=== PATIENT | female | born 1945 | race Caucasian/White ===

== ENCOUNTER 2021-09-22 10:43 | Observation (INO) | payer MEDICARE ==
--- NOTE | 2021-09-22 11:20 | ERPHSYRPT ---
- History of Present Illness Time Seen by Provider: 09/22/21 11:05 Source: patient Exam Limitations: no limitations Physician History: Patient is a 75-year-old female with a history of diabetes and high blood pressure presents to our ED for evaluation of a fall and left upper and lower extremity weakness. Patient states she was at home. At approximately 9:30 AM patient was in the bathroom. Patient began to feel dizzy. Patient ambulated to her living room where she felt "weird". Patient went to sit down on her couch but states she slid off the couch. Patient could not get up on her own. No BHT or LOC. No neck pain. Cervical spine cleared clinically. Symptoms are constant. Patient primarily complains of left upper extremity weakness. No obvious sensory deficits per patient. Patient denies history of stroke. Patient's glucose this morning was 118. Patient otherwise has no complaints. Family friend at bedside. Timing/Duration: today Severity: moderate Character of Deficits: other (Left upper extremity weakness, left leg weakness) Deficits: falling Baseline/Normal Cognition: alert oriented x 3 Current Cognition: alert oriented x 3 Baseline Gait: walks w/o assistance Associated Symptoms: weakness, No fever, No chills, No loss of consciousness, No muscle spasms, No numbness/tingling in legs/feet, No ringing in ears, No seizures, No slurred speech, No chest pain, No headache Allergies/Adverse Reactions: metronidazole [From Flagyl] Allergy (Verified 09/22/21 12:01) Penicillins Allergy (Verified 09/22/21 13:10) Sulfa (Sulfonamide Antibiotics) Allergy (Verified 09/22/21 13:10) aspirin Adverse Reaction (Mild, Verified 09/22/21 13:08) adhesive Adverse Reaction (Verified 09/22/21 13:10) Iodinated Contrast Media Adverse Reaction (Verified 09/22/21 13:10) Home Medications: Amlodipine Besylate 5 mg [Norvasc 5 mg] 5 mg PO DAILY 09/22/21 [History] Budesonide/Glycopyr/Formoterol [Breztri Aerosphere Inhaler] 10.7 gm IH DAILY PRN PRN 09/22/21 [History] Duloxetine HCl 30 mg [Cymbalta 30 MG Capsule] 30 mg PO DAILY 09/22/21 [History] Esomeprazole Magnesium [Nexium] 40 mg PO DAILY 09/22/21 [History] Glipizide 5 mg [Glucotrol 5 MG] 2.5 mg PO DAILY 09/22/21 [History] Glipizide Xl 5 mg [Glucotrol Xl 5 MG] 5 mg PO DAILY 09/22/21 [History] Levothyroxine Sodium 150 Mcg [Synthroid 150 Mcg] 150 mcg PO DAILY 09/22/21 [History] Lisinopril/Hydrochlorothiazide [Lisinopril-Hctz 20-12.5 mg Tab] 1 each PO DAILY 09/22/21 [History] Metoprolol Tartrate 50 mg [Lopressor 50 MG] 50 mg PO DAILY 09/22/21 [History] Sitagliptin Phosphate 50 MG [Januvia 50 MG] 100 mg PO DAILY 09/22/21 [History] Tramadol HCl 50 mg [Ultram 50 mg] 50 mg PO DAILY 09/22/21 [History] Trazodone HCl 50 mg [Desyrel 50 mg] 50 mg PO DAILY 09/22/21 [History] - Review of Systems Constitutional: No Symptoms, No Fever, No Chills Eyes: No Symptoms Ears, Nose, & Throat: No Symptoms Respiratory: No Symptoms, No Cough, No Dyspnea Cardiac: No Symptoms, No Chest Pain, No Edema, No Syncope Abdominal/Gastrointestinal: No Symptoms, No Abdominal Pain, No Nausea, No Vomiting, No Diarrhea Genitourinary Symptoms: No Symptoms, No Dysuria Musculoskeletal: No Symptoms, No Back Pain, No Neck Pain Skin: No Symptoms, No Rash Neurological: No Symptoms, No Dizziness, No Focal Weakness, No Sensory Changes Psychological: No Symptoms Endocrine: No Symptoms Hematologic/Lymphatic: No Symptoms Immunological/Allergic: No Symptoms All Other Systems: Reviewed and Negative - Past Medical History Neurological History: No Pertinent History Cardiac History: No Pertinent History Respiratory History: No Pertinent History Endocrine Medical History: Diabetes Type II, Other Musculoskeletal History: Osteoarthritis Other Medical History: kidney CA, thyroid removal, - Nursing Vital Signs Nursing Vital Signs: Initial Vital Signs Temperature 98.2 F 09/22/21 11:08 Pulse Rate 55 L 09/22/21 11:08 Respiratory Rate 18 09/22/21 11:08 Blood Pressure 128/55 09/22/21 11:08 O2 Sat by Pulse Oximetry 95 09/22/21 11:08 Pain Scale Pain Intensity 4 - Jignesh Coma Scale Best Eye Response (Jignesh): (4) open spontaneously Best Verbal Response (Ashdown): (5) oriented Best Motor Response (Ashdown): (6) obeys commands Ashdown Total: 15 - Physical Exam General Appearance: no apparent distress, alert Eye Exam: bilateral eye: normal inspection, PERRL, EOMI Ears, Nose, Throat Exam: normal ENT inspection, TMs normal, pharynx normal, moist mucous membranes, other Neck Exam: normal inspection, non-tender, supple, full range of motion Respiratory: normal breath sounds, chest tenderness, lungs clear, airway intact, No respiratory distress Cardiovascular: regular rate/rhythm, No edema Gastrointestinal: soft, normal bowel sounds, No tenderness, No distention, No guarding, No rebound, No organomegaly, No splenomegaly Back Exam: normal inspection Extremity Exam: normal inspection, other (Left upper extremity weakness. Patient unable to hold left upper extremity antigravity for more than a second.), No pedal edema Peripheral Pulses: dorsalis-pedis (R): 2+, dorsalis-pedis (L): 2+ Mental Status: alert, oriented x 3 field research assistant Exam: normal hearing, normal speech (Cranial nerves appear to be intact.), PERRL, tongue midline, No abnormal eye position Coordination/Gait: normal finger to nose, normal gait Motor/Sensory: No sensory deficit Skin Exam: normal color, warm, dry, No rash SpO2 Interpretation: normal SpO2: 98 O2 Delivery: Room Air - Course Nursing assessment & vital signs reviewed: Yes EKG Interpreted by Me: RATE (53), Sinus Rhythm, NORMAL AXIS, NORMAL INTERVALS - CT Exams Head CT Interpretation: Tele-radiologist Report (Nonacute senile brain. 1.1 cm calcified meningioma at the right vertex. Pansinusitis) Ordered Tests: Active Orders 24 hr Category Date Time Status Shrimp Header STAT Care 09/22/21 11:14 Active EKG-ER Only STAT Care 09/22/21 11:13 Active IV Insertion STAT Care 09/22/21 11:13 Active Pulse Oximetry (ED) STAT Care 09/22/21 11:13 Active HEAD WITHOUT CONTRAST [CT] Stat Exams 09/22/21 11:11 Completed MRA BRAIN WITHOUT CONTRAST [MRI] Stat Exams 09/22/21 13:38 Ordered CBC W DIFF Stat Lab 09/22/21 11:30 Completed ETHYL ALCOHOL Stat Lab 09/22/21 11:30 Completed MAGNESIUM Stat Lab 09/22/21 11:30 Completed NT PRO BNP Stat Lab 09/22/21 11:30 Completed TROPONIN Q3H Lab 09/22/21 14:15 Ordered TROPONIN Q3H Lab 09/22/21 17:15 Ordered TROPONIN Q3H Lab 09/22/21 20:15 Ordered TROPONIN Q3H Lab 09/22/21 23:15 Ordered UA W/RFX CULTURE Stat Lab 09/22/21 12:55 Results Urine Triage Profile Stat Lab 09/22/21 11:43 Ordered Transfer Order Routine Transfer 09/22/21 Ordered Medication Summary Generic Name Dose Route Start Last Admin Trade Name Freq PRN Reason Stop Dose Admin Sodium Chloride 1,000 mls @ 75 mls/hr 09/22/21 12:45 09/22/21 13:09 Sodium Chloride 0.9% 1000 Ml IV 10/22/21 12:44 75 mls/hr .[id number] HIRAL Administration Discontinued Medications Generic Name Dose Route Start Last Admin Trade Name Freq PRN Reason Stop Dose Admin Acetaminophen 975 mg 09/22/21 13:15 09/22/21 13:18 Acetaminophen 325 Mg Tablet PO 09/22/21 13:16 975 mg STAT STA Administration Acetaminophen Confirm 09/22/21 13:16 Acetaminophen 325 Mg Tablet Administered 09/22/21 13:17 Dose 975 mg .ROUTE .STK-MED ONE Aspirin 324 mg 09/22/21 12:36 09/22/21 13:14 Aspirin 81 Mg Tab.Chew PO 09/22/21 12:37 Not Given STAT ONE Lab/Rad Data: Laboratory Result Diagrams 09/22/21 11:30 09/22/21 11:30 Laboratory Results 09/22/21 09/22/21 09/22/21 Range/Units 12:55 11:30 11:30 WBC (4.0-10.5) K/mm3 RBC (4.1-5.4) M/mm3 Hgb (12.0-16.0) gm/dl Hct (35-47) % MCV (78-100) fl MCH (26-32) pg MCHC (32-36) g/dl RDW (11.5-14.0) % Plt Count (150-450) K/mm3 MPV (7.5-11.0) fl Gran % (36.0-66.0) % Eos # (Auto) (0-0.5) Absolute Lymphs (auto) (1.0-4.6) Absolute Monos (auto) (0.0-1.3) Lymphocytes % (24.0-44.0) % Monocytes % (0.0-12.0) % Eosinophils % (0.00-5.0) % Basophils % (0.0-0.4) % Absolute Granulocytes (1.4-6.9) Basophils # (0-0.4) Sodium Direct 141 (138-146) mmol/L Potassium 4.7 (3.5-4.9) mmol/L Chloride 106 (98-109) mmol/L Carbon Dioxide 25 (24-29) mmol/L Venous BUN 33 H (8-26) mg/dL Creatinine 1.6 H (0.6-1.3) mg/dL Glucose 132 H (70-105) mg/dL Ionized Calcium 1.39 H (1.12-1.32) mmol/L Magnesium (1.6-2.3) mg/dL Troponin 0.00 (0.00-0.03) ng/mL NT-Pro-B Natriuret Pep (0-900) pg/mL Urinalys Dipstick Clnc MAIN LAB Urine Color YELLOW (YELLOW) Urine Appearance CLEAR (CLEAR) Urine pH 6.0 (5-6) Ur Specific [place] 1.015 (1.005-1.025) POC Urine Protein Conf NEGATIVE (Negative) Urine Ketones NEGATIVE (NEGATIVE) Urine Nitrite NEGATIVE (NEGATIVE) Urine Bilirubin NEGATIVE (NEGATIVE) Urine Urobilinogen 0.2 (0-1) mg/dL Urine Leukocytes MODERATE (NEGATIVE) Urine WBC (Auto) Pending Urine RBC (Auto) Pending U Epithel Cells (Auto) Pending Urine Bacteria (Auto) Pending Urine RBC NEGATIVE (0-5) Arian/ul Ur Culture Indicated? Pending Urine Glucose NEGATIVE (NEGATIVE) mg/dL Ethyl Alcohol (0-10) mg/dL 09/22/21 09/22/21 Range/Units 11:30 11:30 WBC 9.8 (4.0-10.5) K/mm3 RBC 4.16 (4.1-5.4) M/mm3 Hgb 12.7 (12.0-16.0) gm/dl Hct 38.7 (35-47) % MCV 93.0 (78-100) fl MCH 30.5 (26-32) pg MCHC 32.8 (32-36) g/dl RDW 12.8 (11.5-14.0) % Plt Count 318 (150-450) K/mm3 MPV 9.3 (7.5-11.0) fl Gran % 60.6 (36.0-66.0) % Eos # (Auto) 0.38 (0-0.5) Absolute Lymphs (auto) 2.76 (1.0-4.6) Absolute Monos (auto) 0.68 (0.0-1.3) Lymphocytes % 28.1 (24.0-44.0) % Monocytes % 6.9 (0.0-12.0) % Eosinophils % 3.9 (0.00-5.0) % Basophils % 0.5 (0.0-0.4) % Absolute Granulocytes 5.94 (1.4-6.9) Basophils # 0.05 (0-0.4) Sodium Direct (138-146) mmol/L Potassium (3.5-4.9) mmol/L Chloride (98-109) mmol/L Carbon Dioxide (24-29) mmol/L Venous BUN (8-26) mg/dL Creatinine (0.6-1.3) mg/dL Glucose (70-105) mg/dL Ionized Calcium (1.12-1.32) mmol/L Magnesium 1.9 (1.6-2.3) mg/dL Troponin (0.00-0.03) ng/mL NT-Pro-B Natriuret Pep 282 (0-900) pg/mL Urinalys Dipstick Clnc Urine Color (YELLOW) Urine Appearance (CLEAR) Urine pH (5-6) Ur Specific [place] (1.005-1.025) POC Urine Protein Conf (Negative) Urine Ketones (NEGATIVE) Urine Nitrite (NEGATIVE) Urine Bilirubin (NEGATIVE) Urine Urobilinogen (0-1) mg/dL Urine Leukocytes (NEGATIVE) Urine WBC (Auto) Urine RBC (Auto) U Epithel Cells (Auto) Urine Bacteria (Auto) Urine RBC (0-5) Arian/ul Ur Culture Indicated? Urine Glucose (NEGATIVE) mg/dL Ethyl Alcohol < 10 (0-10) mg/dL - Progress Progress: improved Progress Note: Case discussed with telemetry neurologist. Telemetry neurologist requests CTA head neck, admission for MRI. Further recommendations will be detailed in his report. 09/22/21 12:15 Patient declined tPA. Per neurologist he does not feel patient is a candidate for tPA. Patient declined/refused her aspirin due to her kidney disease. Case discussed with Dr. Lott. Dr. Lott accepts admission to observation. Patient not a candidate for CT a due to kidney function. MRI a MRI ordered. Portions of this note were created with voice recognition technology. There may be grammatical, spelling, punctuation or sound alike errors 09/22/21 13:39 As patient was in our ED patient's deficits gradually improved. Patient able to move her left arm now. Left arm no longer flaccid. NIH score 1 for telemetry neurologist 09/22/21 13:40 Counseled pt/family regarding: lab results, diagnosis, rad results - Departure Departure Disposition: Observation Clinical Impression: TIA (transient ischemic attack), Chronic renal insufficiency Condition: Stable Critical Care Time: No Referrals: BURKE GOLDBERG [Primary Care Provider] - Follow up/PCP as directed
--- NOTE | 2021-09-22 11:28 | XRAY ---
Indication: Stroke. Status post fall. Multiple contiguous axial images obtained through the head without contrast. Comparison: None Age-appropriate global atrophy with mild periventricular degenerative micro-ischemia bilaterally. Right vertex demonstrates a 1.1 cm calcified meningioma. No acute intracranial hemorrhage, abnormal extra-axial fluid collection, or mass effect. Fourth ventricle is midline without hydrocephalus. Bony calvarium intact. Moderate mucosal thickening of both maxillary and lesser degree both ethmoid/left sphenoid sinuses. Mastoid air cells are clear. Impression: 1. Nonacute senile brain. 2. Small calcified meningioma right vertex. 3. Pansinusitis
[2021-09-22 11:35] LABS: Absolute Neutrophil Ct (ANC) 5.94 (1.4-6.9); Basophil (Absolute #) 0.05 (0-0.4); Eosinophil % 3.9 % (0.00-5.0); Eosinophil (Absolute #) 0.38 (0-0.5); Hematocrit 38.7 % (35-47); Hemoglobin 12.7 gm/dl (12.0-16.0); Lymphocyte (Absolute #) 2.76 (1.0-4.6); Lymphocytes % 28.1 % (24.0-44.0); Mean Corpuscular Hemoglobin 30.5 pg (26-32); Mean Corpuscular Hgb Concent. 32.8 g/dl (32-36); Mean Platelet Volume 9.3 fl (7.5-11.0); Monocyte (Absolute #) 0.68 (0.0-1.3); Monocytes % 6.9 % (0.0-12.0); Neutrophil % 60.6 % (36.0-66.0); Platelet Count 318 K/mm3 (150-450); Red Blood Count 4.16 M/mm3 (4.1-5.4); Red Cell Distribution Width 12.8 % (11.5-14.0); White Blood Count 9.8 K/mm3 (4.0-10.5)
[2021-09-22 12:13] LABS: ISTAT CREA 1.6 mg/dL (0.6-1.3); ISTAT K 4.7 mmol/L (3.5-4.9)
[2021-09-22] MEDS ORDERED: BABY ASPIRIN 81 MG CHEW PO ONE (12:36)
[2021-09-22] MEDS ORDERED: Sodium Chloride 0.9% 1000 ML 1,000 ML IV SCH (12:45)
[2021-09-22] MEDS ORDERED: Sodium Chloride 0.9% 1000 ML 1,000 ML ONE (13:06)
[2021-09-22 13:08] LABS: Appearance CLEAR (CLEAR); Bilirubin NEGATIVE (NEGATIVE); Glucose NEGATIVE (NEGATIVE); Ketones NEGATIVE (NEGATIVE); Nitrite NEGATIVE (NEGATIVE); Protein,Urine Dip NEGATIVE (Negative); RBC NEGATIVE Ery/ul (0-5); Specific Gravity 1.015 (1.005-1.025); Urobilinogen 0.2 mg/dL (0-1)
[2021-09-22 13:09] LABS: Dipstick done @ ? MAIN LAB
[2021-09-22 13:12] LABS: Bacteria RARE /HPF (NEGATIVE); Epithelial Cells RARE /HPF (FEW)
[2021-09-22] MEDS ORDERED: TYLENOL 325 MG PO STA (13:15)
[2021-09-22] MEDS ORDERED: TYLENOL 325 MG ONE (13:16)
[2021-09-22 13:26] LABS: ETHYL ALCOHOL < 10 mg/dL (0-10); MAGNESIUM 1.9 mg/dL (1.6-2.3); NT PRO BNP 282 pg/mL (0-900)
[2021-09-22 13:34] LABS: INFLUENZA A NEGATIVE (NEGATIVE); INFLUENZA B NEGATIVE (NEGATIVE); RESPIRATORY SYNCTIAL VIRUS NEGATIVE (Negative); SARS-CoV-2 Xpert Express NEGATIVE (NEGATIVE)
[2021-09-22 13:38] LABS: Amphetamine,Urine NEGATIVE (NEGATIVE); Barbiturate,Urine NEGATIVE (NEGATIVE); Benzodiazepine,Urine NEGATIVE (NEGATIVE); Cocaine,Urine NEGATIVE (NEGATIVE); Methadone,Urine NEGATIVE (NEGATIVE); Opiate,Urine NEGATIVE (NEGATIVE); PCP,Urine NEGATIVE (NEGATIVE); THC,Urine NEGATIVE (NEGATIVE)
[2021-09-22 13:55] LABS: Urine Cultured Indicated? NO
[2021-09-22] MEDS ORDERED: MAALOX ES 30 ML UNIT DOSE PO PRN (15:06)
[2021-09-22] MEDS ORDERED: Senokot-S Tablet PO PRN (15:06)
[2021-09-22] MEDS ORDERED: MILK OF MAGNESIA 30 ML PO PRN (15:06)
[2021-09-22] MEDS ORDERED: Zofran 4 MG/2 ML VIAL IV PRN (15:06)
--- NOTE | 2021-09-22 16:39 | XRAY ---
Indication: Left-sided weakness. Stroke. Sagittal, coronal, and axial MRI brain performed without contrast using T1, T2, FLAIR, diffusion, and ADC sequences. Comparison: August 19, 2021. Grossly stable age-appropriate global atrophy, moderate periventricular degenerative microvascular ischemia, and remote lacunar infarct left mid centrum semiovale. No acute intracranial hemorrhage, abnormal extra-axial fluid collection, or mass effect. Diffusion images negative for restricted signal. Fourth ventricle is midline without hydrocephalus. 7/8 cranial nerve complex bilaterally symmetric. Normal flow void signal within the major intracerebral circulation. Normal appearing cranial cervical junction and sella turcica. New moderate mucosal thickening both ethmoid/both maxillary/left sphenoid sinuses. Impression: 1. Stable atrophy, degenerative micro-ischemia, and lacunar infarct left centrum semiovale compared MRI last month. 2. New pansinusitis. 3. Continued negative for acute intracranial abnormalities or evidence for evolving large vessel territorial stroke.
[2021-09-22] MEDS ORDERED: PHARMACY DOSING REQUEST MC ONE (16:49)
[2021-09-22] MEDS ORDERED: NON-FORMULARY ITEM (Budesonide/Glycopyr/Formoterol [Breztri Aerosphere Inhaler] 10.7 GM Hf IH PRN (17:10)
[2021-09-22] MEDS ORDERED: ULTRAM 50 MG PO PRN (17:10)
[2021-09-22] MEDS: ENOXAPARIN SODIUM SQ SCH (17:14)
[2021-09-22] MEDS ORDERED: PATIENT OWN MEDICATION IH SCH ×2 (19:42→22:00)
[2021-09-22] MEDS ORDERED: NON-FORMULARY ITEM (Rosuvastatin Calcium [Rosuvastatin Calcium] 5 MG Tablet) PO SCH (22:00)
[2021-09-22] MEDS ORDERED: Zocor 10MG PO SCH (22:00)
[2021-09-22] MEDS: Glucotrol Xl 2.5 MG PO SCH (22:03)
[2021-09-22] MEDS: DESYREL 50 MG PO SCH (22:03)
[2021-09-23] MEDS: TYLENOL 325 MG PO PRN (07:56)
[2021-09-23] MEDS: Glucotrol Xl 2.5 MG PO SCH ×2 (07:57→21:26)
--- NOTE | 2021-09-23 09:33 | HP ---
CHIEF COMPLAINT: Left upper extremity weakness and fall. HISTORY OF PRESENT ILLNESS: The patient is a 75-year-old white female with history of diabetes and had been noted to be somewhat hypertensive. She presented to the emergency room after a fall. Her left upper and lower extremities were weak. The patient was at home at approximately 9:30 a.m. and was in the bathroom and began to feel dizzy and just after presented to the emergency room at 11:05. The patient had a tele-neurology consult after evaluation with CT scan. The patient was resolving her symptoms somewhat at that time and it was feeling that the patient did not need any clot buster medications. However the patient after admission began having problems with weakness in the arm and leg again but by that time it was too late to go back and institute the clot buster medication. We placed her on Lovenox subcu at high dose treatment. PAST MEDICAL/SURGICAL HISTORY: Again significant for hypertension, hyperlipidemia and diabetes mellitus type II. The patient sees Dr. Chente Lutz routinely. HOME MEDICATIONS: Amlodipine 5 mg a day, Breztri inhaler, duloxetine 30 mg a day, Nexium 40 mg a day, glipizide 2.5 mg in the morning and 5 mg in the evening, levothyroxine 150 mg daily, lisinopril hydrochlorothiazide 20/12.5 daily, metoprolol 50 mg daily, Januvia 100 mg daily, Ultram 50 mg PRN for pain, Desyrel 50 mg at night. ALLERGIES: METRONIDAZOLE. PENICILLIN. SULFA. ASPIRIN. ADHESIVE (MILD REACTION). IODINATED CONTRAST MEDIA (MILD REACTION). PHYSICAL EXAMINATION: VITAL SIGNS: Temperature 98.2F, pulse 55, respiratory rate 18, blood pressure 128/55. O2 saturation was 95% on room air. HEENT: Normocephalic, atraumatic. There does appear to be somewhat of a left facial droop although with grimace and squinting I could not detect any significant abnormality. Oropharynx is pink and moist. NECK: Supple without lymphadenopathy, thyromegaly or JVD. No bruits were heard. CHEST: Clear to auscultation. HEART: Regular rate and rhythm. ABDOMEN: Soft without masses. EXTREMITIES: Without cyanosis, clubbing or edema. NEUROLOGIC: The patient does have some left upper extremity and left lower extremity weakness on two examinations. LAB DATA AND TESTS: Laboratory studies have shown her lipid panel showing triglyceride at 333 and HDL of 30, LDL 100. She is not currently on statin medication. Her prealbumin level was normal. Troponin was less than 0.012. Hemoglobin A1C was 6.76. The patient's 12-lead EKG showed some delayed progression across precordial leads and no significant ST-T wave changes. The reports on the CT scan and MRI are not currently on the chart record but I believe did show lacunar infarct and no obvious acute events and no bleed. ASSESSMENT: The patient was admitted to the hospital for monitoring. She will obviously now need PT/OT evaluation. We will place her on Zocor 10 mg a day, for statin medication which she is currently lacking we will place her on aspirin 81 mg a day and Plavix 75 mg a day. She will receive one more Lovenox injection.
[2021-09-23] MEDS ORDERED: Glucotrol 5 MG PO SCH (10:00)
[2021-09-23] MEDS ORDERED: NON-FORMULARY ITEM (Esomeprazole Magnesium [Nexium] 40 MG Suspdr.Pkt) PO SCH (10:00)
[2021-09-23] MEDS ORDERED: GLIPIZIDE 5 MG PO SCH (10:00)
[2021-09-23] MEDS ORDERED: NON-FORMULARY ITEM (Lisinopril/Hydrochlorothiazide [Lisinopril-Hctz 20-12.5 Mg Tab] 1 EACH PO SCH (10:00)
[2021-09-23] MEDS ORDERED: NON-FORMULARY ITEM (Duloxetine Hcl [Duloxetine Hcl] 60 MG Capsule.Dr) PO SCH (10:00)
[2021-09-23] MEDS: Cymbalta 30 MG Capsule PO SCH (10:20)
[2021-09-23] MEDS: Protonix 40MG Tablet PO SCH (10:21)
[2021-09-23] MEDS: hydroDIURIL 25 MG PO SCH (10:21)
[2021-09-23] MEDS: Januvia 50 MG PO SCH (10:21)
[2021-09-23] MEDS: ECOTRIN 81 MG PO SCH (10:22)
[2021-09-23] MEDS: PLAVIX Tablet PO SCH (10:22)
[2021-09-23] MEDS: NORVASC 5 MG PO SCH (10:22)
[2021-09-23] MEDS: Zestril 20 MG PO SCH (10:22)
[2021-09-23] MEDS: Lopressor 50 MG PO SCH (10:22)
[2021-09-23] MEDS: SYNTHROID 150 MCG PO SCH (10:22)
[2021-09-23] MEDS: ENOXAPARIN SODIUM SQ SCH (17:54)
--- NOTE | 2021-09-23 19:28 | XRAY ---
Indication: TIA. Two-dimensional sonogram and color Doppler imaging of the carotid arteries of the neck performed. Comparison: None Examination of the right carotid circulation demonstrates widely patent common carotid artery. Minimal heterogeneous plaquing at the level of the bulb extending into the origin of the internal carotid carotid artery. PSV of the CCA is 95 cm/s. PSV of the ICA is 80 cm/s. ICA/CCA ratio is 0.8. Normal antegrade vertebral artery flow. Examination of the left carotid circulation demonstrates widely patent common carotid, carotid bulb, internal carotid, and external carotid arteries. PSV of the CCA is 108 cm/s. PSV of the ICA is 95 cm/s. ICA/CCA ratio is 0.9. Normal antegrade vertebral artery flow. Impression: Minimal plaquing in the right carotid circulation as detailed. Widely patent left carotid circulation. Velocity measurements and ratios are negative for hemodynamically significant flow-limiting stenosis.
[2021-09-23] MEDS: DESYREL 50 MG PO SCH (21:26)
[2021-09-23] MEDS: ZOCOR 20MG PO SCH (21:26)
[2021-09-23] MEDS ORDERED: Zocor 10MG PO SCH (22:00)
[2021-09-23] MEDS: PATIENT OWN MEDICATION IH SCH (22:43)
--- NOTE | 2021-09-24 07:20 | PCM.NOTE ---
Date and Time: 09/24/21717 Subjective Assessment: patient has some heaviness of left arm and leg but she is able to lift them up off of the bed and use them which is a great improvement, she is very encouraged. awaiting e[facility] stay for rehab Objective Exam General Appearance: no apparent distress, obese Neurologic Exam: alert, oriented x 3, motor weakness (left arm and leg) Respiratory Exam: normal breath sounds, lungs clear, No respiratory distress Cardiovascular Exam: regular rate/rhythm, normal heart sounds Gastrointestinal/Abdomen Exam: soft, No tenderness, No mass OBJECTIVE DATA Vital Signs: Vital Signs - 24 hr Temp Pulse Resp BP Pulse Ox 09/24/21 04:00 97.3 F 53 L 16 123/58 91 L 09/24/21 00:00 98.3 F 70 20 140/63 93 L 09/23/21 22:43 62 18 94 L 09/23/21 20:00 97.0 F 70 11 L 136/67 95 09/23/21 16:00 58 L 17 144/67 94 L 09/23/21 12:00 97.5 F 66 18 134/63 94 L 09/23/21 08:00 97.1 F 63 17 186/72 94 L Pain Assessment - Last Documented Pain Intensity 0 Pain Scale Used FLACC Intake and Output: Intake & Output 09/21/21 09/22/21 09/23/21 09/24/21 11:59 11:59 11:59 11:59 Intake Total 900 510 Output Total 1150 901 Balance -250 -391 Weight 80.6 kg 87.8 kg Lab Results: Lab Results-Last 24 Hours 09/23/21 09/23/21 09/23/21 Range/Units 07:53 11:36 16:06 POC Glucometer 111 H 149 H 141 H (74 to 106) mg/dL 09/23/21 09/24/21 Range/Units 21:28 07:13 POC Glucometer 157 H 125 H (74 to 106) mg/dL Radiology Exams: Radiology Procedures Category Date Time Status CAROTID BILATERAL [US] Routine Exams 09/23/21 17:15 Completed HEAD WITHOUT CONTRAST [CT] Stat Exams 09/22/21 11:11 Completed MRI BRAIN W/O CONTRAST [MRI] Stat Exams 09/22/21 15:06 Completed Multi-Disciplinary Progress Notes: Multi-Disciplinary Progress Notes 09/23/21 12:53 Case Management Note by Lilliana Ashley CANNOT TAKE PATIENT THEY ARE OUT OF NETWORK. REFERRAL FAXED TO [facility] Initialized on 09/23/21 12:53 - END OF NOTE Assessment/Plan (1) TIA (transient ischemic attack) Current Visit: Yes Status: Acute Assessment & Plan: no critical stenosis on carotid artery, MRI shows chronic changes. patient is on aspirin/plavix, statin and normotensive. plan for rehab stay after discharge. Code(s): G45.9 - TRANSIENT CEREBRAL ISCHEMIC ATTACK, UNSPECIFIED
[2021-09-24] MEDS: PATIENT OWN MEDICATION IH SCH ×2 (08:12→19:39)
[2021-09-24] MEDS: Lopressor 50 MG PO SCH (08:49)
[2021-09-24] MEDS: Januvia 50 MG PO SCH (08:49)
[2021-09-24] MEDS: Cymbalta 30 MG Capsule PO SCH (08:49)
[2021-09-24] MEDS: Glucotrol Xl 2.5 MG PO SCH ×2 (08:49→21:05)
[2021-09-24] MEDS: SYNTHROID 150 MCG PO SCH (08:49)
[2021-09-24] MEDS: PLAVIX Tablet PO SCH (08:49)
[2021-09-24] MEDS: NORVASC 5 MG PO SCH (08:50)
[2021-09-24] MEDS: hydroDIURIL 25 MG PO SCH (08:50)
[2021-09-24] MEDS: Protonix 40MG Tablet PO SCH (08:50)
[2021-09-24] MEDS: ECOTRIN 81 MG PO SCH (08:50)
[2021-09-24] MEDS: Zestril 20 MG PO SCH (08:50)
[2021-09-24] MEDS: ZOCOR 20MG PO SCH (21:05)
[2021-09-24] MEDS: DESYREL 50 MG PO SCH (21:07)
[2021-09-24] MEDS: TYLENOL 325 MG PO PRN (22:19)
[2021-09-25 05:37] LABS: Absolute Neutrophil Ct (ANC) 6.41 (1.4-6.9); Basophil (Absolute #) 0.05 (0-0.4); Eosinophil % 3.8 % (0.00-5.0); Eosinophil (Absolute #) 0.45 (0-0.5); Hematocrit 36.9 % (35-47); Hemoglobin 11.8 gm/dl (12.0-16.0); Lymphocyte (Absolute #) 3.89 (1.0-4.6); Lymphocytes % 33.2 % (24.0-44.0); Mean Cell Volume 95.1 fl (78-100); Mean Corpuscular Hemoglobin 30.4 pg (26-32); Mean Platelet Volume 9.1 fl (7.5-11.0); Monocyte (Absolute #) 0.93 (0.0-1.3); Monocytes % 7.9 % (0.0-12.0); Neutrophil % 54.7 % (36.0-66.0); Platelet Count 274 K/mm3 (150-450); Red Blood Count 3.88 M/mm3 (4.1-5.4); Red Cell Distribution Width 12.8 % (11.5-14.0); White Blood Count 11.7 K/mm3 (4.0-10.5)
[2021-09-25 05:52] LABS: ANION GAP 12.4 MEQ/L (5-15); Calcium 9.5 mg/dL (8.4-10.2); Creatinine 1 1.36 mg/dL (0.52-1.04); EST GLOMERULAR FILTRATION RATE 40.5 ML/MIN; Potassium 3.9 mmol/L (3.5-5.1)
[2021-09-25] MEDS: PATIENT OWN MEDICATION IH SCH ×2 (07:14→19:44)
[2021-09-25] MEDS: NORVASC 5 MG PO SCH (07:51)
[2021-09-25] MEDS: SYNTHROID 150 MCG PO SCH (07:51)
[2021-09-25] MEDS: ECOTRIN 81 MG PO SCH (07:51)
[2021-09-25] MEDS: Lopressor 50 MG PO SCH (07:51)
[2021-09-25] MEDS: Glucotrol Xl 2.5 MG PO SCH ×2 (07:51→21:12)
[2021-09-25] MEDS: Cymbalta 30 MG Capsule PO SCH (07:52)
[2021-09-25] MEDS: Januvia 50 MG PO SCH (07:52)
[2021-09-25] MEDS: hydroDIURIL 25 MG PO SCH (07:52)
[2021-09-25] MEDS: PLAVIX Tablet PO SCH (07:52)
[2021-09-25] MEDS: Zestril 20 MG PO SCH (07:52)
[2021-09-25] MEDS: Protonix 40MG Tablet PO SCH (07:52)
--- NOTE | 2021-09-25 08:05 | PCM.NOTE ---
Date and Time: 09/25/21 08 Subjective Assessment: patient is discourage, left arm and leg are much more weak today, unable to lift them or use them and was much better yesterday morning. Objective Exam General Appearance: no apparent distress Neurologic Exam: alert, oriented x 3, motor deficits, facial droop Respiratory Exam: normal breath sounds, lungs clear, No respiratory distress Cardiovascular Exam: regular rate/rhythm, normal heart sounds Gastrointestinal/Abdomen Exam: soft, No tenderness, No mass OBJECTIVE DATA Vital Signs: Vital Signs - 24 hr Temp Pulse Resp BP Pulse Ox 09/25/21 07:14 97.7 F 64 16 137/64 94 L 09/25/21 04:00 97.8 F 89 16 126/62 97 09/25/21 00:00 97.1 F 55 L 20 123/59 91 L 09/24/21 20:00 96.7 F 56 L 16 125/62 94 L 09/24/21 19:39 56 L 16 92 L 09/24/21 16:00 98.2 F 56 L 16 121/62 94 L 09/24/21 11:26 98 F 56 L 18 119/61 94 L 09/24/21 08:12 72 18 93 L Pain Assessment - Last Documented Pain Intensity 0 Pain Scale Used 0-10 Pain Scale Intake and Output: Intake & Output 09/22/21 09/23/21 09/24/21 09/25/21 11:59 11:59 11:59 11:59 Intake Total 900 710 560 Output Total 1150 1401 1450 Balance -250 -681 -890 Weight 80.6 kg 87.8 kg 85.3 kg 85.3 kg Lab Results: Lab Results-Last 24 Hours 09/24/21 09/24/21 09/24/21 Range/Units 11:18 16:15 22:11 WBC (4.0-10.5) K/mm3 RBC (4.1-5.4) M/mm3 Hgb (12.0-16.0) gm/dl Hct (35-47) % MCV (78-100) fl MCH (26-32) pg MCHC (32-36) g/dl RDW (11.5-14.0) % Plt Count (150-450) K/mm3 MPV (7.5-11.0) fl Gran % (36.0-66.0) % Eos # (Auto) (0-0.5) Absolute Lymphs (auto) (1.0-4.6) Absolute Monos (auto) (0.0-1.3) Lymphocytes % (24.0-44.0) % Monocytes % (0.0-12.0) % Eosinophils % (0.00-5.0) % Basophils % (0.0-0.4) % Absolute Granulocytes (1.4-6.9) Basophils # (0-0.4) Sodium (137-145) mmol/L Potassium (3.5-5.1) mmol/L Chloride (98-107) mmol/L Carbon Dioxide (22-30) mmol/L Anion Gap (5-15) MEQ/L BUN (7-17) mg/dL Creatinine (0.52-1.04) mg/dL Estimated GFR ML/MIN Glucose (74-106) mg/dL POC Glucometer 200 H 127 H 131 H (74 to 106) mg/dL Calcium (8.4-10.2) mg/dL 09/25/21 09/25/21 09/25/21 Range/Units 05:21 05:21 07:07 WBC 11.7 H (4.0-10.5) K/mm3 RBC 3.88 L (4.1-5.4) M/mm3 Hgb 11.8 L (12.0-16.0) gm/dl Hct 36.9 (35-47) % MCV 95.1 (78-100) fl MCH 30.4 (26-32) pg MCHC 32.0 (32-36) g/dl RDW 12.8 (11.5-14.0) % Plt Count 274 (150-450) K/mm3 MPV 9.1 (7.5-11.0) fl Gran % 54.7 (36.0-66.0) % Eos # (Auto) 0.45 (0-0.5) Absolute Lymphs (auto) 3.89 (1.0-4.6) Absolute Monos (auto) 0.93 (0.0-1.3) Lymphocytes % 33.2 (24.0-44.0) % Monocytes % 7.9 (0.0-12.0) % Eosinophils % 3.8 (0.00-5.0) % Basophils % 0.4 (0.0-0.4) % Absolute Granulocytes 6.41 (1.4-6.9) Basophils # 0.05 (0-0.4) Sodium 139 (137-145) mmol/L Potassium 3.9 (3.5-5.1) mmol/L Chloride 106 (98-107) mmol/L Carbon Dioxide 25 (22-30) mmol/L Anion Gap 12.4 (5-15) MEQ/L BUN 31 H (7-17) mg/dL Creatinine 1.36 H (0.52-1.04) mg/dL Estimated GFR 40.5 ML/MIN Glucose 125 H (74-106) mg/dL POC Glucometer 139 H (74 to 106) mg/dL Calcium 9.5 (8.4-10.2) mg/dL Radiology Exams: Radiology Procedures Category Date Time Status CAROTID BILATERAL [US] Routine Exams 09/23/21 17:15 Completed Multi-Disciplinary Progress Notes: Multi-Disciplinary Progress Notes 09/24/21 11:15 Physical Therapy Note by [email or web address] PT. SEEN BY August THIS A.M. UP IN BEDSIDE CHAIR. NIECE PRESENT FOR RX. PT. REPORTS SHE SEEMS TO HAVE MORE L HAND CONTROL IN THE EVENING HOURS. PERFORMED SATED LE AROM EX'S OF ANKLE PUMPS, HELL SLIDES, QUAD SETS; NOTED L LE WEAKNESS CONTINUED BUT DOES HAVE ACTIVE MOVEMENT AT ALL JOINTS L LE. NOTED L QUAD/HAMSTRING WEAKNESS AND DECREASED ECCENTRIC CONTROL L LE. L HAND TITLE PROCESSOR IS WEAK, BUT PRESENT. PERFORMED L ELBOW/FOREARM AAROM IN PNF PATTERN W/ WEAKNESS NOTED BUT MUSCLE CONTRACTION PRESENT. PT. PERFORMED SIT TO STAND W/ MIN ASSIST X 1; REQUIRED V.C. FOR HAND PLACEMENT ON CHAIR FOR SAFETY. PT. AMBULATED ~ 10' W/ RW AND MIN ASSIST X2 - NEEDED ASSIST TO MAINTAIN L HAND TITLE PROCESSOR ON WALKER AND TO ADVANCE L LE AND MAINTAIN L KNEE CONTROL IN STANCE. NOTED HIP ABD W/ SWING PHASE WELL. DID NOTE SOME IMPULSIVITY W/ MOVEMENT AND DECREASED PROPRIOCEPTION L UE, LE WELL SOME NEGLECT L UE. WILL CONT. PT 5-6X/WK TO INCREASE PT'S INDEPENDENCE W/ FUNCTIONAL MOBILITY TO PREP FOR REHAB STAY. NSG TO ASSIST PT. W/ MOBILITY OVER TH REST OF THE WEEKEND. PT. INSTRUCTED RE: SELF- ROM L UE USING R UE. RX TIME - 10:50-1110 Initialized on 09/24/21 11:15 - END OF NOTE Assessment/Plan (1) Cerebrovascular accident (CVA) with left hemiparesis Current Visit: Yes Status: Acute Assessment & Plan: continue current meds, patient desires rehab stay. awaiting insurance approval, continue aspirin/plavix/statin Code(s): [id number] -
[2021-09-25] MEDS: DESYREL 50 MG PO SCH (21:11)
[2021-09-25] MEDS: ZOCOR 20MG PO SCH (21:11)
[2021-09-26 05:29] LABS: Hematocrit 35.5 % (35-47); Hemoglobin 11.4 gm/dl (12.0-16.0); Mean Cell Volume 94.7 fl (78-100); Mean Corpuscular Hemoglobin 30.4 pg (26-32); Mean Corpuscular Hgb Concent. 32.1 g/dl (32-36); Mean Platelet Volume 9.7 fl (7.5-11.0); Platelet Count 280 K/mm3 (150-450); Red Blood Count 3.75 M/mm3 (4.1-5.4); Red Cell Distribution Width 12.8 % (11.5-14.0); White Blood Count 13.4 K/mm3 (4.0-10.5)
[2021-09-26 05:43] LABS: Calcium 8.9 mg/dL (8.4-10.2); Creatinine 1 1.31 mg/dL (0.52-1.04); EST GLOMERULAR FILTRATION RATE 42.3 ML/MIN; Potassium 4.1 mmol/L (3.5-5.1)
[2021-09-26 06:52] LABS: Eosinophil 4 % (0.00-3.0); Lymphocytes 26 % (24-44); Monocyte 2 % (0.0-12.0); Platelet Estimate NORMAL (NORMAL); Total Cells Counted 100
[2021-09-26] MEDS: PATIENT OWN MEDICATION IH SCH (07:08)
[2021-09-26] MEDS: Glucotrol Xl 2.5 MG PO SCH (07:48)
[2021-09-26] MEDS: SYNTHROID 150 MCG PO SCH (07:49)
[2021-09-26] MEDS: Januvia 50 MG PO SCH (09:00)
[2021-09-26] MEDS: Protonix 40MG Tablet PO SCH (09:00)
[2021-09-26] MEDS: NORVASC 5 MG PO SCH (09:00)
[2021-09-26] MEDS: PLAVIX Tablet PO SCH (09:00)
[2021-09-26] MEDS: ECOTRIN 81 MG PO SCH (09:00)
[2021-09-26] MEDS: hydroDIURIL 25 MG PO SCH (09:00)
[2021-09-26] MEDS: Cymbalta 30 MG Capsule PO SCH (09:00)
[2021-09-26] MEDS: Lopressor 50 MG PO SCH (09:00)
[2021-09-26] MEDS: Zestril 20 MG PO SCH (09:00)
[2021-09-26] MEDS: TYLENOL 325 MG PO PRN (10:54)
[2021-09-26 12:13] VITALS: BP 120/55; PULSE 56; O2SAT 94
== END 2021-09-26 12:53 ==
LOC: ED 10:43 → MED SURG 15:03
PROVIDERS: ADMIT Family Medicine; ATTEND Family Medicine
DX: I63.9 Cerebral infarction, unspecified (principal); I69.354 Hemiplegia and hemiparesis following cerebral infarction affecting left non-dominant side; W18.30XA Fall on same level, unspecified, initial encounter; E11.9 Type 2 diabetes mellitus without complications; I10 Essential (primary) hypertension; E78.5 Hyperlipidemia, unspecified; R79.89 Other specified abnormal findings of blood chemistry; Z79.899 Other long term (current) drug therapy; Z20.828 Contact with and (suspected) exposure to other viral communicable diseases; Z79.01 Long term (current) use of anticoagulants
CPT/HCPCS: 0241U; 36000; 36415; 70450; 70551; 80047; 80048; 80061; 80307; 81015; 82947; 83036; 83721; 83735; 83880; 84134; 84484; 85025; 93005; 93041; 93268; 93880; 94640; 94760; 96360; 96361; 97110; 97112; 97161; 97165; 97530; 99285; G0378; G0480; J1650; A9270-GY

== ENCOUNTER 2022-12-27 17:24 | Emergency (ER) | payer MEDICARE ==
[2022-12-27 17:57] VITALS: PULSE 72; RESP 18; TEMP 96.8
[2022-12-27 18:33] VITALS: BP 143/94
--- NOTE | 2022-12-27 18:35 | ERPHSYRPT ---
- History of Present Illness Time Seen by Provider: 12/27/22 17:40 Source: patient, family Exam Limitations: no limitations Patient Subjective Stated Complaint: pt sent to er for an abnormal ct scan today, she ws dx with a new subdural hematoma. she states she had a fall about 2 weeks ago. she is on plavix. co headache Triage Nursing Assessment: pt walked in, alert, resp easy, skin w/d/p, has weakness to left side from an old stroke, pupils equal and reactive to light. Physician History: Patient is a 77-year-old white female who self suffered a fall 2 weeks ago. She continued to have headache so was sent to the PCP for a an outpatient CT scan. She does have a history of CVA and does suffer frequent falls. She is on Plavix. The CT did show a small anterior hemispheric bleed no shift or mass effect. Occurred: days ago (14) Severity: moderate Head Injury Location: occipital Method of Injury: fell Loss of Consciousness: no loss of consciousness Associated Symptoms: headaches Allergies/Adverse Reactions: metronidazole [From Flagyl] Allergy (Verified 12/27/22 17:38) Penicillins Allergy (Verified 12/27/22 17:38) Sulfa (Sulfonamide Antibiotics) Allergy (Verified 12/27/22 17:38) aspirin Adverse Reaction (Mild, Verified 12/27/22 17:38) adhesive Adverse Reaction (Verified 12/27/22 17:38) Iodinated Contrast Media Adverse Reaction (Verified 12/27/22 17:38) Home Medications: Amlodipine Besylate 5 mg [Norvasc 5 mg] 10 mg PO DAILY 09/22/21 [History] Budesonide/Glycopyr/Formoterol [Breztri Aerosphere Inhaler] 10.7 gm IH DAILY PRN PRN 09/22/21 [History] Duloxetine HCl 60 mg PO DAILY 09/22/21 [History] Esomeprazole Magnesium [Nexium] 40 mg PO DAILY 09/22/21 [History] Glipizide Xl 5 mg [Glucotrol Xl 5 MG] 2.5 mg PO HS 09/22/21 [History] Glipizide Xl 5 mg [Glucotrol Xl 5 MG] 5 mg PO DAILY 09/22/21 [History] Levothyroxine Sodium 150 Mcg [Synthroid 150 Mcg] 150 mcg PO DAILY 09/22/21 [History] Lisinopril/Hydrochlorothiazide [Lisinopril-Hctz 20-12.5 mg Tab] 1 tablet PO DAILY 09/22/21 [History] Metoprolol Tartrate 50 mg [Lopressor 50 MG] 100 mg PO DAILY 09/22/21 [History] Rosuvastatin Calcium 5 mg PO HS 09/22/21 [History] Sitagliptin Phosphate 50 MG [Januvia 50 MG] 100 mg PO DAILY 09/22/21 [History] Tramadol HCl 50 mg [Ultram 50 mg] 50 mg PO Q6H PRN PRN 09/22/21 [History] Trazodone HCl 50 mg [Desyrel 50 mg] 100 mg PO HS 09/22/21 [History] Hx Tetanus, Diphtheria Vaccination/Date Given: No Hx Influenza Vaccination/Date Given: Yes Hx Pneumococcal Vaccination/Date Given: Yes Immunizations Up to Date: Yes Travel Risk - International Travel Have you traveled outside of the country in past 3 weeks: No - Coronavirus Screening Are you exhibiting any of the following symptoms?: No Close contact with a COVID-19 positive Pt in past 14-21 Days: No - Vaccine Status Have you recieved a Covid-19 vaccination: Yes Dump Truck Driver Off Highway: Unknown - Vaccination Dates Dates if Unknown: ? - Review of Systems Constitutional: No Fever, No Chills Eyes: No Symptoms Ears, Nose, & Throat: No Symptoms Respiratory: No Cough, No Dyspnea Cardiac: No Chest Pain, No Edema, No Syncope Abdominal/Gastrointestinal: No Abdominal Pain, No Nausea, No Vomiting, No Diarrhea Genitourinary Symptoms: No Dysuria Musculoskeletal: No Back Pain, No Neck Pain Skin: No Rash Neurological: No Dizziness, No Focal Weakness, No Sensory Changes Psychological: No Symptoms Endocrine: No Symptoms All Other Systems: Reviewed and Negative - Past Medical History Pertinent Past Medical History: Yes Neurological History: Stroke ENT History: No Pertinent History Cardiac History: No Pertinent History Respiratory History: No Pertinent History Endocrine Medical History: Diabetes Type II, Other Musculoskeletal History: Osteoarthritis GI Medical History: Other History: Kidney Cancer Psycho-Social History: No Pertinent History Female Reproductive Disorders: Ovarian Cancer Other Medical History: kidney CA, thyroid removal,frequent falls - Past Surgical History Past Surgical History: Yes Neuro Surgical History: No Pertinent History Cardiac: No Pertinent History Respiratory: No Pertinent History Gastrointestinal: Cholecystectomy, Hernia Repair Genitourinary: Kidney Surgery Musculoskeletal: Orthopedic Surgery Female Surgical History: Hysterectomy, Section, Mastectomy Other Surgical History: bilateral mastectomy, shoulder, knee, hernia, thyroide ctomy - Social History Smoking Status: Never smoker Exposure to second hand smoke: No Drug Use: none Patient Lives Alone: No - Nursing Vital Signs Nursing Vital Signs: Initial Vital Signs Blood Pressure 159/63 12/27/22 17:39 Pain Scale Pain Intensity 9 - Jignesh Coma Score Best Eye Response ([place]): (4) open spontaneously Best Verbal Response ([place]): (5) oriented Best Motor Response ([place]): (6) obeys commands Jignesh Total: 15 - Physical Exam General Appearance: no apparent distress, alert Eye Exam: bilateral eye: PERRL, EOMI ENT Exam: airway nml Neck Exam: supple, trachea midline, full range of motion Cardiovascular/Respiratory Exam: chest non-tender, normal breath sounds, regular rate/rhythm Gastrointestinal/Abdominal Exam: soft, non tender, no distention Back Exam: normal inspection, No vertebral tenderness Extremity Exam: non-tender, normal range of motion, normal inspection Mental Status Exam: alert, oriented x 3, cooperative figure model Exam: normal hearing, normal speech, PERRL Coordination/Gait Exam: normal gait Motor/Sensory Exam: no motor deficit, no sensory deficit, CN II-XII intact Skin Exam: normal color, warm, dry, No rash SpO2 Interpretation: normal SpO2: 96 O2 Delivery: Room Air - Course Nursing assessment & vital signs reviewed: Yes - Progress Progress: unchanged Medical Desision Making - Risk of complications Low Risk: Low risk of morbidity from additional dx testing or treatment - Departure Departure Disposition: Home Clinical Impression: Intracranial bleed Condition: Stable Critical Care Time: No Referrals: BURKE GOLDBERG [Primary Care Provider] - Follow up/PCP as directed Instructions: Concussion, Adult (DC), Head Injury in Adults (DC) Additional Instructions: Patient was instructed after we consulted [facility] to call Dr. Cortes at [phone] to schedule an appointment in [address] a repeat CT scan.
[2022-12-27 18:37] VITALS: O2SAT 96
== END 2022-12-27 18:49 | disposition home or self-care (01) ==
LOC: ED 17:24
DX: S06.5X0A Traumatic subdural hemorrhage without loss of consciousness, initial encounter (principal); W19.XXXA Unspecified fall, initial encounter; Z91.81 History of falling; E11.9 Type 2 diabetes mellitus without complications; Z79.02 Long term (current) use of antithrombotics/antiplatelets; Z79.84 Long term (current) use of oral hypoglycemic drugs; Z79.891 Long term (current) use of opiate analgesic; Z79.899 Other long term (current) drug therapy
CPT/HCPCS: 99282